=== PATIENT | female | born 1955 | race Caucasian/White ===

== ENCOUNTER → 2017-02-08 | Outpatient (CLI) | payer BC | LOC: MC.RAD 15:19 | DX: Z12.31 Encounter for screening mammogram for malignant neoplasm of breast (principal); N63 Unspecified lump in breast ==

== ENCOUNTER 2017-02-18 08:40 | Day surgery (SDC) | payer BC ==
[~2017-02-18] VITALS: Ht 162.6 cm; Wt 68.3 kg
[2017-02-18 09:15] VITALS: BP 158/81; PULSE 76; TEMP 97.8
[2017-02-18] MEDS ORDERED: MULTIPLE VITAMI1 CAP PO (09:28)
[2017-02-18] MEDS ORDERED: ADVIL200 MG PO (09:29)
[2017-02-18] MEDS ORDERED: BENADRYL25 M2 PO (09:29)
[2017-02-18 10:57] VITALS: BP 146/76; PULSE 90; TEMP 98.2
[2017-02-18 11:07] VITALS: BP 125/67; PULSE 82
== END 2017-02-18 11:45 | disposition home or self-care (01) ==
LOC: SDCO 08:40
DX: Z12.11 Encounter for screening for malignant neoplasm of colon (principal); Z80.0 Family history of malignant neoplasm of digestive organs; K57.30 Diverticulosis of large intestine without perforation or abscess without bleeding; Z90.710 Acquired absence of both cervix and uterus
CPT/HCPCS: J7030

== ENCOUNTER → 2017-02-22 | Outpatient (CLI) | payer BC ==
[~2017-02-22] MED LIST: ADVIL200 MG PO; BENADRYL25 M2 PO; MULTIPLE VITAMI1 CAP PO
== END ==
LOC: MC.RAD 13:30
DX: Z01.89 Encounter for other specified special examinations (principal)

== ENCOUNTER → 2018-03-10 | Outpatient (CLI) | payer MEDICARE, OTHER | LOC: MC.RAD 14:20 | DX: Z12.31 Encounter for screening mammogram for malignant neoplasm of breast (principal) ==

== ENCOUNTER 2020-08-13 13:23 | Observation (INO) | payer MEDICARE, OTHER ==
[2020-08-13] VITALS (10 sets, daily range): BP systolic 105–138; BP diastolic 53–67; PULSE 70–93; TEMP 97.9–98.4
[~2020-08-13] VITALS: Ht 162.6 cm; Wt 72.0 kg
[~2020-08-13 13:23] MED LIST changes: -CARAFATE 1GM1 G PO; -COLACE 100100 MG/CAP PO; -PHARMASSURE ZIN50 MG PO; -PROTONIX 40MG T40 MG PO; -VITAMIN C500 MG PO
[2020-08-13] MEDS ORDERED: COLACE 100100 MG/CAP PO (14:08)
[2020-08-13] MEDS ORDERED: PHARMASSURE ZIN50 MG PO (14:08)
[2020-08-13] MEDS ORDERED: VITAMIN C500 MG PO (14:09)
[2020-08-13] MEDS ORDERED: PROTONIX 40MG T40 MG PO (14:09)
[2020-08-13] MEDS ORDERED: CARAFATE 1GM1 G PO (14:09)
--- NOTE | 2020-08-13 14:35 | NUR ---
Patient a direct admit to room 348. notifed of her arrival. Ultrasound being completed at bedside. She is NPO. Med rec completed.
--- NOTE | 2020-08-13 16:12 | NUR ---
Patient to the Or with Angela [facility] nurse. Patient prepped for Or. Jewlerly removed. She brushed her teeth. Surgical scrub used. All admission paperwork completed. IV started & Lr to gravity per orders. Patient has notified her family of plan of care.
--- NOTE | 2020-08-13 18:19 | NUR ---
Report from Roberta in [facility]. Patient awake & alert, Her brother at bedside. Lap site x3 bandaids intact. Scds ble. Dinner ordered, denies nausea. Pain managed. Vss on room air.
--- NOTE | 2020-08-13 18:58 | NUR ---
Patietn sitting up in bed. No complaints. Bedside report to Nik
--- NOTE | 2020-08-13 20:40 | NUR ---
Pt. sitting up in bed at this time. Pt. is A&OX3, assessment complete. INT to lt. forearm patent. Pt. denies pain or other needs at this time. Call light within reach.
[2020-08-14 00:16] VITALS: BP 110/42; PULSE 71; TEMP 97.3
[2020-08-14 04:46] VITALS: BP 108/52; PULSE 76; TEMP 97.9
--- NOTE | 2020-08-14 06:57 | NUR ---
Report received, pt resting with eyes closed, even non labored breathing
[2020-08-14 07:30] VITALS: BP 103/55; PULSE 73; TEMP 98.5
--- NOTE | 2020-08-14 09:00 | NUR ---
Pt doing well and plans to go home. Informed her that she can get dressed and that I would be in with paperwork. Informed her that I would need to call Dr Reese for the final discharge order.
--- NOTE | 2020-08-14 09:22 | NUR ---
MADAY met with the patient to discuss discharge plan. The patient lives alone in [place]. She states that she has good friends that live in town. She reports independence with ADLs and does not have any DME. The patient's PCP is Dr. Shankar Corley and she receives her medications from [facility] in . She reports no difficulties obtaining her meds. The patient does not have a DPOA-HC, but she was interested in obtaining a form. MADAY provided. The patient states that her is and that she has two children: Marisol Patel and Megan Arauz. She states that they are both in the [employer]. Her brother, Victor M Martinez ([phone]), is listed as her person to contact. She states that he lives in [place]. The patient plans to return home upon discharge. She states that her daughter, Marisol, will be coming up from [place] and staying with her until Tuesday. No additional needs at this time.
--- NOTE | 2020-08-14 09:50 | NUR ---
INT removed by [facility] [employer] student. Reviewed dischrage instructions with patient to include follow up appointment. Pt is calling her ride at this time, informed to notify nursing when he arrives so that we can escort her out.
== END 2020-08-14 10:15 | disposition home or self-care (01) ==
LOC: SURG 13:23
PROVIDERS: ADMIT Surgery
DX: K80.12 Calculus of gallbladder with acute and chronic cholecystitis without obstruction (principal); Z90.710 Acquired absence of both cervix and uterus; Z88.8 Allergy status to other drugs, medicaments and biological substances; K21.9 Gastro-esophageal reflux disease without esophagitis
CPT/HCPCS: G0378; G0379; J0330; J1100; J1885; J2405; J2704; J3010; J7120; Q9967

== ENCOUNTER → 2020-08-13 | Outpatient (CLI) | payer MEDICARE, OTHER ==
[~2020-08-13] MED LIST changes: +CARAFATE 1GM1 G PO; +COLACE 100100 MG/CAP PO; +PHARMASSURE ZIN50 MG PO; +PROTONIX 40MG T40 MG PO; +VITAMIN C500 MG PO
== END ==
LOC: ZCOL.LAB 11:14
DX: R10.13 Epigastric pain (principal)

== ENCOUNTER → 2020-10-09 | Outpatient (CLI) | payer MEDICARE, OTHER ==
[~2020-10-09] MED LIST changes: +CARAFATE 1GM1 G PO; +COLACE 100100 MG/CAP PO; +PHARMASSURE ZIN50 MG PO; +PROTONIX 40MG T40 MG PO; +VITAMIN C500 MG PO
== END ==
LOC: MC.RAD 13:45
DX: Z12.31 Encounter for screening mammogram for malignant neoplasm of breast (principal); Z78.0 Asymptomatic menopausal state